=== PATIENT | male | born 2000 | race African-American/Black ===

== ENCOUNTER 2023-09-03 15:58 | Inpatient (IN) ==
[2023-09-03 17:28] LABS: ABS Eosinophils 0.1 10^3/uL (0.0-0.5); ABS Lymphocytes 1.3 10^3/uL (1.0-4.8); ABS Monocytes 0.3 10^3/uL (0.0-1.1); ABS Neutrophils 3.4 10^3/uL (1.5-7.6); Eosinophil % 1.2 %; Hematocrit 36.6 % (38-53); Hemoglobin 12.2 g/dL (13.2-16.3); Lymphocyte % 25.7 %; Mean Corpuscular Hemoglobin 30.4 pg (27-33); Mean Corpuscular Hgb Conc 33.4 g/dL (31-36); Mean Platelet Volume 7.7 fL (7.5-11.2); Platelet Count 302 10^3/uL (150-450); Red Blood Count 4.02 10^6/uL (4.06-5.63); Red Cell Distribution Width 12.8 % (12-17); White Blood Count 5.1 10^3/uL (3.6-10.2)
[2023-09-03 17:29] LABS: Urine Appearance Clear; Urine Bilirubin Negative (Negative); Urine Blood Negative (Negative); Urine Color Light-Yellow; Urine Glucose Negative (Negative); Urine Ketones Negative (Negative); Urine Nitrite Negative (Negative); Urine Protein Negative (Negative); Urine Specific Gravity 1.016 (1.002-1.030); Urine Urobilinogen Negative (Negative)
[2023-09-03 17:50] LABS: Urine Benzodiazepine Screen None Detected (None Detect); Urine Cannabinoids Screen None Detected (None Detect); Urine Opiates Screen None Detected (None Detect)
[2023-09-03 17:56] LABS: ALT 11 U/L (7-52); AST 13 U/L (13-39); Acetaminophen < 15 mcg/mL; Albumin 4.8 g/dL (3.2-5.2); Albumin/Globulin Ratio 2.2 (1-3); Alcohol, S < 13 mg/dL (<13); Alkaline Phosphatase 38 U/L (35-149); Anion Gap 5 mmol/L (2-16); Blood Urea Nitrogen 14 mg/dL (6-24); CO2 Carbon Dioxide 30 mmol/L (22-32); Calcium 9.9 mg/dL (8.6-10.3); Chloride 101 mmol/L (101-111); Creatinine, Serum 0.94 mg/dL (0.67-1.17); Globulin 2.2 g/dL (2-4); Glucose 94 mg/dL (70-100); Potassium 4.6 mmol/L (3.5-5.0); Salicylate < 2.50 mg/dL (<30); Sodium 136 mmol/L (135-145); Total Bilirubin 0.5 mg/dL (0.2-1.0)
[2023-09-03 18:05] LABS: TSH Ultra Thyroid Stim Horm 1.17 mcIU/mL (0.34-5.60)
[2023-09-03] MEDS ORDERED: Al Hydrox/Mg Hydrox/Simet LIQ 30 ML UDC PO PRN (19:30)
[2023-09-04 08:39] LABS: HDL Cholesterol 64.6 mg/dL
[2023-09-04] MEDS ORDERED: COVID VAC 23-24(12+)(Moderna) SYR 0.5 ML IM ONE (09:00)
[2023-09-04] MEDS: Vitamin THERAPEUTIC TAB PO SCH (09:19)
[2023-09-04] MEDS: CLINDAMYCIN TOPICAL SCH (22:53)
[2023-09-04] MEDS: BENZOYL PEROXIDE TOPICAL SCH (22:53)
[2023-09-04] MEDS: TRETINOIN 0.05% TOPICAL SCH (22:53)
[2023-09-04] MEDS: EMTRICITABINE PO SCH (22:55)
[2023-09-04] MEDS: TENOFOVIR PO SCH (22:55)
== END 2023-09-07 14:31 | disposition home or self-care (01) | DRG 885 ==
LOC: ED 15:58 → EDHOLD 19:12 → BSU 21:50
PROVIDERS: ADMIT Psychiatry & Neurology Psychiatry; ATTEND Psychiatry & Neurology Psychiatry